=== PATIENT | male | born 1985 | race Caucasian/White ===

== ENCOUNTER 2018-09-18 01:25 | Emergency (ER) | payer MEDICAID ==
[~2018-09-18] VITALS: Ht 170.2 cm; Wt 69.4 kg
[2018-09-18 01:28] VITALS: BP 170/109
--- NOTE | 2018-09-18 01:35 | NUR ---
PT BIBA WITH C/O ANXIETY. PT STATED HE JUST GOT OUT OF [facility] TODAY. PT HAS HX OF ANXIETY, BIPOLAR, SCHIZOPHRENIA. ER MADE AWARE OF STATUS. PT IS A/OX4. SAFTEY MEASURES IN PLACE.
--- NOTE | 2018-09-18 01:40 | NUR ---
PT IS REFUSING TREATMENT. ER MD MADE AWARE
--- NOTE | 2018-09-18 01:45 | NUR ---
PATIENT LEFT WITHOUT BEING SEEN BY DR. PAUL. NO FURTHER CARE PROVIDED FOR PATIENT.
== END 2018-09-18 01:45 | disposition left against medical advice (07) ==
LOC: MED 01:25
DX: F41.9 Anxiety disorder, unspecified (principal); Z53.21 Procedure and treatment not carried out due to patient leaving prior to being seen by health care provider